=== PATIENT | female | born 1940 | race Caucasian/White ===

== ENCOUNTER 2017-10-18 21:03 | Emergency (ER) | payer MEDICARE, OTHER ==
--- NOTE | 2017-10-18 21:05 | EDM.PDOC ---
ED HPI GENERAL MEDICAL PROBLEM - General Stated Complaint: LEFT HAND PAIN Time Seen by Provider: 10/18/17 21:05 Source of Information: Reports: Patient - History of Present Illness INITIAL COMMENTS - FREE TEXT/NARRATIVE: HISTORY AND PHYSICAL: History of present illness: [Patient in town visiting from [place] issues with Tierney hoffman, she tripped over a cord that was taped to the floor and had loose and falling on outstretched hand she complains of left wrist pain over the radial head as well as left elbow pain Denies head injury loss of consciousness no fever nausea vomiting chills sweats no other injury described ] Review of systems: As per history of present illness and below otherwise all systems reviewed and negative. Past medical history: As per history of present illness and as reviewed below otherwise noncontributory. Surgical history: As per history of present illness and as reviewed below otherwise noncontributory. Social history: No reported history of drug or alcohol abuse. Family history: As per history of present illness and as reviewed below otherwise noncontributory. Physical exam: HEENT: Atraumatic, normocephalic, pupils reactive, negative for conjunctival pallor or scleral icterus, mucous membranes moist, throat clear, neck supple, nontender, trachea midline. Lungs: Clear to auscultation, breath sounds equal bilaterally, chest nontender. Heart: S1S2, regular, negative for clicks, rubs, or JVD. Abdomen: Soft, nondistended, nontender. Negative for masses or hepatosplenomegaly. Negative for costovertebral tenderness. Pelvis: Stable nontender. Genitourinary: Deferred. Rectal: Deferred. Extremities: Atraumatic, negative for cords or calf pain. Neurovascular unremarkable. Left upper extremity tender over the radial head no snuffbox tenderness entire limb neurovascularly intact no bruising or open lesion Neuro: Awake, alert, oriented. Cranial nerves II through XII unremarkable. Cerebellum unremarkable. Motor and sensory unremarkable throughout. Exam nonfocal. Diagnostics: [Left wrist complete Left elbow] Therapeutics: [Rest ice ibuprofen Cock-up splinSling for comfortt ] follow-up with orthopedist Impression: [Fall] Left wrist pain/ injury Left elbow pain/injury Definitive disposition and diagnosis as appropriate pending reevaluation and review of above. - Related Data Allergies Allergy/AdvReac Type Severity Reaction Status Date / Time amoxicillin Allergy Rash Verified 10/18/17 21:20 cefuroxime [From Ceftin] Allergy Anaphylactic Verified 10/18/17 21:20 Shock ciprofloxacin [From Cipro] Allergy Rash Verified 10/18/17 21:20 clavulanic acid Allergy Rash Verified 10/18/17 21:20 [From Augmentin] sulfamethoxazole Allergy Rash Verified 10/18/17 21:20 [From Bactrim] trimethoprim [From Bactrim] Allergy Rash Verified 10/18/17 21:20 ED ROS GENERAL - Review of Systems Review Of Systems: See Below ED EXAM, GENERAL - Physical Exam Exam: See Below Course - Vital Signs Last Recorded V/S: Last Vital Signs Temp 98.5 F 10/18/17 21:15 Pulse 71 10/18/17 21:15 Resp 18 10/18/17 21:15 BP 167/65 H 10/18/17 21:15 Pulse Ox 99 10/18/17 21:15 - Orders/Labs/Meds Orders: Active Orders 24 hr Category Date Time Status Elbow Min 3V Lt [CR] Stat Exams 10/18/17 21:05 Taken Wrist Comp Min 3V Lt [CR] Stat Exams 10/18/17 21:05 Ordered Departure - Departure Time of Disposition: 21:59 Disposition: Home, Self-Care 01 Condition: Good Clinical Impression: Left wrist injury - Discharge Information Instructions: Pain Medicine Instructions, [id number] Referrals: PCP,None [Primary Care Provider] - Forms: ED Department Discharge Additional Instructions: Rest Ice 20 minute intervals 3 times daily as needed Ibuprofen 400 mg 3 times daily 7-10 days Follow-up with orthopedist or primary care in approximately 2 weeks [facility] [address], [address] [place] [address] my orthopedic The following information is given to patients seen in the emergency department who are being discharged to home. This information is to outline your options for follow-up care. We provide all patients seen in our emergency department with a follow-up referral. The need for follow-up, as well as the timing and circumstances, are variable depending upon the specifics of your emergency department visit. If you don't have a primary care physician on staff, we will provide you with a referral. We always advise you to contact your personal physician following an emergency department visit to inform them of the circumstance of the visit and for follow-up with them and/or the need for any referrals to a consulting specialist. The emergency department will also refer you to a specialist when appropriate. This referral assures that you have the opportunity for follow-up care with a specialist. All of these measure are taken in an effort to provide you with optimal care, which includes your follow-up. Under all circumstances we always encourage you to contact your private physician who remains a resource for coordinating your care. When calling for follow-up care, please make the office aware that this follow-up is from your recent emergency room visit. If for any reason you are refused follow-up, please contact the [facility] emergency department at and asked to speak to the emergency department charge nurse. - My Orders Last 24 Hours: My Active Orders 10/18/17 21:05 Elbow Min 3V Lt [CR] Stat Wrist Comp Min 3V Lt [CR] Stat - Assessment/Plan Last 24 Hours: My Active Orders 10/18/17 21:05 Elbow Min 3V Lt [CR] Stat Wrist Comp Min 3V Lt [CR] Stat
--- NOTE | 2017-10-21 13:15 | CR ---
EXAM DATE: 10/18/17 PATIENT'S AGE: 76 Patient: RACH TENA Facility: [place], [place] Site . Site : 1940 Study: XRay Extremity Left ELBOW [id number]/15/2018 9:42:28 PM Ordering Physician: Doctor French Final Report: HISTORY: Fall, pain. FINDINGS: Three views of the left elbow do not reveal a joint effusion. There is normal alignment present. There is a small traction spur off the lateral epicondyle. No fracture or dislocation. IMPRESSION: 1. Traction spur of the lateral epicondyle. 2. No joint effusion, fracture or dislocation. Dictated by Mendy Fitzgerald MD @ 10/18/2017 9:52:39 PM Dictated by: Mendy Fitzgerald MD @ 10/18/2017 21:52:45 (Electronic Signature) Report Signed by Proxy. JEROME
--- NOTE | 2017-10-21 13:16 | CR ---
EXAM DATE: 10/18/17 PATIENT'S AGE: 76 Patient: RACH TENA Facility: [place], [place] Site . Site : 1940 Study: XRay Extremity Left WRIST [id number]/15/2018 9:42:58 PM Ordering Physician: Doctor French Final Report: HISTORY: Fall, pain. FINDINGS: Three views of the left wrist demonstrate decrease of the radiocarpal joint space with decreased joint space between the carpals. A 3 mm benign appearing lucent bone lesion is seen within the lunate. No fracture or dislocation is identified. IMPRESSION: No fracture identified. If snuffbox tenderness is present and persistent, a follow up exam 7-10 days may be of value to exclude an occult scaphoid fracture. Dictated by Mendy Fitzgerald MD @ 10/18/2017 9:54:13 PM Dictated by: Mendy Fitzgerald MD @ 10/18/2017 21:54:35 (Electronic Signature) Report Signed by Proxy. JEROME
== END 2017-10-18 22:10 | disposition home or self-care (01) ==
LOC: MW.ED 21:03
DX: S69.92XA Unspecified injury of left wrist, hand and finger(s), initial encounter (principal); W18.09XA Striking against other object with subsequent fall, initial encounter; Z88.1 Allergy status to other antibiotic agents; Z88.8 Allergy status to other drugs, medicaments and biological substances
CPT/HCPCS: 73080-26-LT; 73080-LT; 73110-26-LT; 73110-LT; 99283